=== PATIENT | female | born 1975 | race African-American/Black ===

== ENCOUNTER 2023-04-05 10:17 | Outpatient (CLI) | payer OTHER | END 2023-04-05 10:18 | disposition home or self-care (01) | LOC: NM 10:17 | PROVIDERS: ATTEND Orthopaedic Surgery | DX: T84.032A Mechanical loosening of internal right knee prosthetic joint, initial encounter (principal); Z96.651 Presence of right artificial knee joint | CPT/HCPCS: 78315; A9503 ==

== ENCOUNTER 2024-01-03 09:20 | Outpatient (CLI) | payer OTHER ==
[2024-01-03] MEDS ORDERED: Barium Sulfate 96% 176 GM BOT (xray ONLY) ONE (09:42)
[2024-01-03] MEDS ORDERED: E-Z-HD 98% W/W 340GM BOT (x-ray ONLY) ONE (09:42)
== END 2024-01-03 09:21 | disposition home or self-care (01) ==
LOC: RAD 09:20
PROVIDERS: ATTEND Internal Medicine
DX: R13.14 Dysphagia, pharyngoesophageal phase (principal); K21.9 Gastro-esophageal reflux disease without esophagitis; R93.3 Abnormal findings on diagnostic imaging of other parts of digestive tract
CPT/HCPCS: 74220

== ENCOUNTER 2024-01-03 11:29 | Outpatient (CLI) | payer OTHER | END 2024-01-03 11:30 | disposition home or self-care (01) | LOC: BICMAMMO 11:29 | PROVIDERS: ATTEND Internal Medicine | DX: Z12.31 Encounter for screening mammogram for malignant neoplasm of breast (principal) | CPT/HCPCS: 77063; 77067 ==